=== PATIENT | male | born 1985 | race Two or more races ===

== ENCOUNTER 2018-11-29 23:20 | Observation (INO) | payer SELFPAY ==
[~2018-11-29] VITALS: Ht 172.7 cm; Wt 63.5 kg
[2018-11-30] VITALS (9 sets, daily range): BP systolic 112–126; BP diastolic 70–82
--- NOTE | 2018-11-30 00:42 | PHYS DOC ---
Past Medical History Past Medical History: No Pertinent History Past Surgical History: Other Additional Past Surgical Histo: unknown abd surgury "not cancer" per pt. Alcohol Use: Occasionally Drug Use: None Adult General Chief Complaint Chief Complaint: RIB PAIN HPI HPI Patient is a 33 year old Male who presents with one week ago patient was working under a truck when the dixie slipped and the truck tire fell down onto the patient patient states that he tried to get out from underneath it and a abrasion occurred to his right scapula. Patient states that he is slightly short of breath and having pain to the right scapula area. Patient rates pain a 6 out of 10. Ambulatory with a steady gait. Review of Systems Review of Systems Constitutional: Denies fever or chills [] Eyes: Denies change in visual acuity, redness, or eye pain [] HENT: Denies nasal congestion or sore throat [] Respiratory: Denies cough or shortness of breath [] Cardiovascular: No additional information not addressed in HPI [] GI: Denies abdominal pain, nausea, vomiting, bloody stools or diarrhea [] : Denies dysuria or hematuria [] Musculoskeletal: Right scapula back pain or joint pain [] Integument: Abrasion to right scapula. Denies rash or skin lesions [] Neurologic: Denies headache, focal weakness or sensory changes [] Endocrine: Denies polyuria or polydipsia [] All other systems were reviewed and found to be within normal limits, except as documented in this note. Current Medications Current Medications Current Medications Medications (Trade) Dose Ordered Sig/Hiro Start Time Stop Time Status Last Admin Dose Admin Acetaminophen/ Hydrocodone Bitart (Lortab 5/325) 1 tab 1X ONCE 11/30/18 00:45 11/30/18 00:46 DC 11/30/18 00:54 1 TAB Allergies Allergies Allergies Coded Allergies Type Severity Reaction Last Updated Verified No Known Drug Allergies 11/30/18 No Physical Exam Physical Exam Constitutional: Well developed, well nourished, no acute distress, non-toxic appearance. [] HENT: Normocephalic, atraumatic, bilateral external ears normal, oropharynx moist, no oral exudates, nose normal. [] Eyes: PERRLA, EOMI, conjunctiva normal, no discharge. [] Neck: Normal range of motion, no tenderness, supple, no stridor. [] Cardiovascular:Heart rate regular rhythm, no murmur [] Lungs & Thorax: Bilateral breath sounds clear to auscultation [] Abdomen: Bowel sounds normal, soft, no tenderness, no masses, no pulsatile masses. [] Skin: Right scapula abrasion. Warm, dry, no erythema, no rash. [] Back: No tenderness, no CVA tenderness. [] Extremities: Right scapula tenderness, no cyanosis, no clubbing, ROM intact, no edema. [] Neurologic: Alert and oriented X 3, normal motor function, normal sensory function, no focal deficits noted. [] Psychologic: Affect normal, judgement normal, mood normal. [] Current Patient Data Vital Signs Vital Signs Date Time Temp Pulse Resp B/P (MAP) Pulse Ox O2 Delivery O2 Flow Rate FiO2 11/30/18 00:54 98 Room Air 11/29/18 23:41 98.0 98 16 147/97 (114) 98.0 EKG EKG [] Radiology/Procedures Radiology/Procedures [] Impressions: [facility] [address] [place] [address] IMAGING REPORT Signed PATIENT: ALBERTO BRINK AACCOUNT: [id number] : 1985 LOCATION: ER AGE: 33 SEX: M EXAM STATUS: REG ER ORD. PHYSICIAN: JOSE JOLLEY APRN REASON: CAR TIRE FELL ON PATIENT PROCEDURE: CLAVICLE RIGHT Two-view right clavicle and two-view right scapula dated 11/30/2018. No comparison available. Clinical data indication: Car tire fell on patient. Pain. FINDINGS: Right scapula show normal bony alignment. No displaced fracture. Proximal humerus is intact. Mild hypertrophic change at the AC joint. 2 views of right clavicle show normal bony alignment. No displaced fracture. No significant subluxation of the AC joint. IMPRESSION: No acute radiographic abnormality. Electronically signed by: John Meade MD (11/30/2018 1:05 AM) [facility] DICTATED and SIGNED BY: JOHN MEADE MD DATE: 11/30/18 0105 [facility] [address] [place] [address] IMAGING REPORT Signed PATIENT: ALBERTO BRINK AACCOUNT: [id number] : 1985 LOCATION: ER AGE: 33 SEX: M EXAM STATUS: REG ER ORD. PHYSICIAN: JOSE JOLLEY APRN REASON: CAR TIRE FELL ON PATIENT PROCEDURE: RIBS RIGHT AND PA CHEST Single view chest and right-sided rib study dated 11/30/2018. No comparison available. Clinical data indication: Pain after injury. FINDINGS: Upright view of the chest shows normal heart and mediastinal contours. There is a small apical pneumothorax on the right. Pleural edge measures approximately 3.1 cm from the apical chest wall. Lungs are otherwise clear. No consolidation or pleural effusion. No pneumothorax. Dedicated views of right-sided ribs show a minimally displaced fracture of the posterior third right rib with slight cortical irregularity of the posterior fourth right rib. Osseous structures are otherwise intact. IMPRESSION: 1. Small right apical pneumothorax. 2. Minimally displaced fracture of the third and possibly fourth posterior right ribs. Results discussed with ER physician at approximately 1:09 AM on the day of the exam. Electronically signed by: John Meade MD (11/30/2018 1:10 AM) [facility] DICTATED and SIGNED BY: JOHN MEADE MD DATE: 11/30/180 Course & Med Decision Making Course & Med Decision Making Patient is a 33 year old Male who presents with one week ago patient was working under a truck when the dixie slipped and the truck tire fell down onto the patient patient states that he tried to get out from underneath it and a abrasion occurred to his right scapula. Patient states that he is slightly short of breath and having pain to the right scapula area. Patient rates pain a 6 out of 10. Ambulatory with a steady gait. Vital signs within normal limits. Lungs are clear to auscultation all lobes. No deformity seen to scapula but there is tenderness over the right scapula. Patient does have something to be a healing abrasion to the right scapula without signs of infection. Patient has full range of motion of the right upper extremity at all joints. Patient states mostly with movement he has pain. Speaks in full clear sentences. Skin pink warm and dry. No extremity swelling. Refill less than 3 seconds. No pain over chest or ribs with palpation or crepitus felt. No pain over right clavicle although it does stick out further than the left clavicle. Patient has no bruising or swelling. Scapula and Clavicle xray shows no acute findings. Right ribs and chest shows 3rd and possibly 4th rib fracture with small pneumothorax. Radiologist called to give me these results. I have spoken to Dr Jaimes and she states that since the patient is stable and it has been going on for a week that a chest tube is not indicated at this time but the patient is to be admitted. Chest with ribs xrays IMPRESSION: 1. Small right apical pneumothorax. 2. Minimally displaced fracture of the third and possibly fourth posterior right ribs. Dragon Disclaimer Dragon Disclaimer This electronic medical record was generated, in whole or in part, using a voice recognition dictation system. Departure Departure Impression: Primary Impression: Rib fractures Additional Impression: Pneumothorax on right Disposition: 09 ADMITTED INPATIENT Admitting Physician: HIMS Condition: STABLE Referrals: NO PCP (PCP) Problem Qualifiers Primary Impression: Rib fractures Encounter type: initial encounter Rib fracture type: multiple ribs Fracture type: closed Laterality: right Qualified Codes: S22.41XA - Multiple fractures of ribs, right side, initial encounter for closed fracture JOSE JOLLEY SENIOR PRINCIPAL Nov 30, 2018 00:41
[2018-11-30] MEDS ORDERED: HYDROcodone/APAP 5/325MG 1 TAB TABLET PO ONE (00:45)
--- NOTE | 2018-11-30 01:08 | RAD ---
Two-view right clavicle and two-view right scapula dated 11/30/2018. No comparison available. Clinical data indication: Car tire fell on patient. Pain. FINDINGS: Right scapula show normal bony alignment. No displaced fracture. Proximal humerus is intact. Mild hypertrophic change at the AC joint. 2 views of right clavicle show normal bony alignment. No displaced fracture. No significant subluxation of the AC joint. IMPRESSION: No acute radiographic abnormality. Electronically signed by: John Meade MD (11/30/2018 1:05 AM) [facility]
--- NOTE | 2018-11-30 01:12 | RAD ---
Single view chest and right-sided rib study dated 11/30/2018. No comparison available. Clinical data indication: Pain after injury. FINDINGS: Upright view of the chest shows normal heart and mediastinal contours. There is a small apical pneumothorax on the right. Pleural edge measures approximately 3.1 cm from the apical chest wall. Lungs are otherwise clear. No consolidation or pleural effusion. No pneumothorax. Dedicated views of right-sided ribs show a minimally displaced fracture of the posterior third right rib with slight cortical irregularity of the posterior fourth right rib. Osseous structures are otherwise intact. IMPRESSION: 1. Small right apical pneumothorax. 2. Minimally displaced fracture of the third and possibly fourth posterior right ribs. Results discussed with ER physician at approximately 1:09 AM on the day of the exam. Electronically signed by: John Meade MD (11/30/2018 1:10 AM) [facility]
[2018-11-30] MEDS ORDERED: ONDANSETRON PF 4 MG/2 ML VIAL. IV PRN (01:30)
[2018-11-30] MEDS ORDERED: ACETAMINOPHEN 325 MG TABLET. PO PRN (01:30)
[2018-11-30] MEDS ORDERED: fentaNYL PF VIAL 100 MCG/2 ML VIAL IV PRN (01:30)
[2018-11-30 01:46] LABS: BASO # 0.1 x10^3/uL (0.0-0.2); BASO % 1 % (0-3); EOS # 0.4 x10^3/uL (0.0-0.7); EOS % 5 % (0-3); HEMATOCRIT 41.1 % (39.0-53.0); HEMOGLOBIN 14.3 g/dL (13.0-17.5); LYMPH # 2.9 x10^3/uL (1.0-4.8); LYMPH % 33 % (24-48); MEAN CORPUSCULAR HEMOGLOBIN 34 pg (25-35); MEAN CORPUSCULAR HGB CONC 35 g/dL (31-37); MEAN CORPUSCULAR VOLUME 98 fL (79-100); MONO # 0.8 x10^3/uL (0.0-1.1); MONO % 10 % (0-9); NEUT # 4.5 x10^3/uL (1.8-7.7); NEUT % 52 % (31-73); PLATELET COUNT 475 x10^3/uL (140-400); RED BLOOD COUNT 4.19 x10^6/uL (4.30-5.70); RED CELL DISTRIBUTION WIDTH 13.1 % (11.5-14.5); WHITE BLOOD COUNT 8.8 x10^3/uL (4.0-11.0)
[2018-11-30 02:00] LABS: CREATININE 0.9 mg/dL (0.7-1.3); POTASSIUM 3.5 mmol/L (3.5-5.1)
[2018-11-30 02:05] LABS: ALBUMIN 3.8 g/dL (3.4-5.0); ALBUMIN/GLOBULIN RATIO 0.9 (1.0-1.7); TOTAL BILIRUBIN 0.3 mg/dL (0.2-1.0)
--- NOTE | 2018-11-30 10:50 | PDOC1 ---
History and Physical Date of Admission Date of Admission DATE: 11/30/18 TIME: 10:50 Identification/Chief Complaint Chief Complaint SEEN IN ER, CC ///AT WORK, 1 week ago under truck, dixie slipped and tire fell on patient. He has had some chest pressure and SOA since. Has not gotten any better. Xray findings with right small apical pneumothorax, rib fractures tried to get out from underneath truck and a abrasion occurred to his right scapula. is slightly short of breath and having pain to the right scapula area. Patient rates pain a 6 out of 10. Ambulatory with a steady gait.in er . Past Medical History Past Medical History Past Medical History Past Medical History: No Pertinent History Past Surgical History: Other Additional Past Surgical Histo: unknown abd surgury "not cancer" per pt. Alcohol Use: Occasionally Drug Use: None family hx htn Pulmonary: No pertinent hx GI: No pertinent hx Renal/: No pertinent hx Endocrine: No pertinent hx Dermatology: No pertinent hx Family History Family History: High Cholestrol, Hypertension Social History Smoke: No ALCOHOL: social Drugs: None Current Problem List Problem List Problems Medical Problems: (1) Pneumothorax on right Status: Acute (2) Rib fractures Status: Acute Current Medications Current Medications Current Medications Acetaminophen/ Hydrocodone Bitart (Lortab 5/325) 1 tab 1X ONCE PO Last administered on 11/30/18at 00:54; Start 11/30/18 at 00:45; Stop 11/30/18 at 00:46; Status DC Ondansetron HCl (Zofran) 4 mg PRN Q8HRS PRN IV NAUSEA/VOMITING; Start 11/30/18 at 01:30; Stop 12/01/18 at 01:29 Fentanyl Citrate (Fentanyl 2ml Vial) 50 mcg PRN Q1HR PRN IV PAIN; Start at 01:30; Stop 12/01/18 at 01:29 Acetaminophen (Tylenol) 650 mg PRN Q4HRS PRN PO FEVER; Start 11/30/18 at 01:30; Stop 12/01/18 at 01:29 Active Scripts Active Reported No Known Medications Prior To Admisstion (Info) Each 1 Each [facility] Allergies Allergies: Coded Allergies: No Known Drug Allergies (Unverified , 11/30/18) ROS Review of System Review of Systems Review of Systems Constitutional: Denies fever or chills [] Eyes: Denies change in visual acuity, redness, or eye pain [] HENT: Denies nasal congestion or sore throat [] Respiratory: Denies cough has mild shortness of breath [] Cardiovascular: No additional information not addressed in HPI [] GI: Denies abdominal pain, nausea, vomiting, bloody stools or diarrhea [] : Denies dysuria or hematuria [] Musculoskeletal: Right scapula back pain or joint pain [] Integument: Abrasion to right scapula. Denies rash or skin lesions [] Neurologic: Denies headache, focal weakness or sensory changes [] Endocrine: Denies polyuria or polydipsia [] 14 pt systems were reviewed and found to be within normal limits, except as documented in this note. Respiratory: YES: Pleuritic Pain Cardiovascular: yes Chest Pain Gastrointestinal: No Nausea, No Vomiting, No Abdominal Pain, No Diarrhea, No Constipation, No Melena, No Hematochezia, No Other Physical Exam Physical Exam Physical Exam Physical Exam Constitutional: Well developed, well nourished, no acute distress, non-toxic appearance. [] HENT: Normocephalic, atraumatic, bilateral external ears normal, oropharynx moist, no oral exudates, nose normal. [] Eyes: PERRLA, EOMI, conjunctiva normal, no discharge. [] Neck: Normal range of motion, no tenderness, supple, no stridor. [] Cardiovascular:Heart rate regular rhythm, no murmur [] Lungs & Thorax: Bilateral breath sounds clear to auscultation [] Abdomen: Bowel sounds normal, soft, no tenderness, no masses, no pulsatile masses. [] Skin: Right scapula abrasion. Warm, dry, no erythema, no rash. [] Back: No tenderness, no CVA tenderness. [] Extremities: Right scapula tenderness, no cyanosis, no clubbing, ROM intact, no edema. [] Neurologic: Alert and oriented X 3, normal motor function, normal sensory function, no focal deficits noted. [] Psychologic: Affect normal, judgement normal, mood normal. [] General: Alert, Oriented X3, Cooperative, No acute distress HEENT: Atraumatic, EOMI Lungs: Clear to auscultation Heart: S1S2, RRR, no thrills Breasts: Normal Abdomen: Normal bowel sounds, Soft PELVIC: Examination not indicated Extremities: No cyanosis, No edema Neuro: Normal speech, Strength at 5/5 X4 ext, Cranial nerves 3-12 NL Psych/Mental Status: Mental status NL, Mood NL Vitals Vitals Vital Signs Date Time Temp Pulse Resp B/P (MAP) Pulse Ox O2 Delivery O2 Flow Rate FiO2 11/30/18 10:24 80 16 117/76 (90) 98 Room Air 11/29/18 23:41 98.0 98.0 Labs Labs Laboratory Tests Test 11/30/18 01:38 White Blood Count 8.8 x10^3/uL (4.0-11.0) Red Blood Count 4.19 x10^6/uL (4.30-5.70) Hemoglobin 14.3 g/dL (13.0-17.5) Hematocrit 41.1 % (39.0-53.0) Mean Corpuscular Volume 98 fL (79-100) Mean Corpuscular Hemoglobin 34 pg (25-35) Mean Corpuscular Hemoglobin Concent 35 g/dL (31-37) Red Cell Distribution Width 13.1 % (11.5-14.5) Platelet Count 475 x10^3/uL (140-400) Neutrophils (%) (Auto) 52 % (31-73) Lymphocytes (%) (Auto) 33 % (24-48) Monocytes (%) (Auto) 10 % (0-9) Eosinophils (%) (Auto) 5 % (0-3) Basophils (%) (Auto) 1 % (0-3) Neutrophils # (Auto) 4.5 x10^3/uL (1.8-7.7) Lymphocytes # (Auto) 2.9 x10^3/uL (1.0-4.8) Monocytes # (Auto) 0.8 x10^3/uL (0.0-1.1) Eosinophils # (Auto) 0.4 x10^3/uL (0.0-0.7) Basophils # (Auto) 0.1 x10^3/uL (0.0-0.2) Sodium Level 140 mmol/L (136-145) Potassium Level 3.5 mmol/L (3.5-5.1) Chloride Level 102 mmol/L (98-107) Carbon Dioxide Level 26 mmol/L (21-32) Anion Gap 12 (6-14) Blood Urea Nitrogen 16 mg/dL (8-26) Creatinine 0.9 mg/dL (0.7-1.3) Estimated GFR (Cockcroft-Gault) 96.0 BUN/Creatinine Ratio 18 (6-20) Glucose Level 114 mg/dL (70-99) Calcium Level 9.0 mg/dL (8.5-10.1) Total Bilirubin 0.3 mg/dL (0.2-1.0) Aspartate Amino Transf (AST/SGOT) 22 U/L (15-37) Alanine Aminotransferase (ALT/SGPT) 44 U/L (16-63) Alkaline Phosphatase 106 U/L (46-116) Total Protein 8.0 g/dL (6.4-8.2) Albumin 3.8 g/dL (3.4-5.0) Albumin/Globulin Ratio 0.9 (1.0-1.7) Laboratory Tests Test 11/30/18 01:38 White Blood Count 8.8 x10^3/uL (4.0-11.0) Red Blood Count 4.19 x10^6/uL (4.30-5.70) Hemoglobin 14.3 g/dL (13.0-17.5) Hematocrit 41.1 % (39.0-53.0) Mean Corpuscular Volume 98 fL (79-100) Mean Corpuscular Hemoglobin 34 pg (25-35) Mean Corpuscular Hemoglobin Concent 35 g/dL (31-37) Red Cell Distribution Width 13.1 % (11.5-14.5) Platelet Count 475 x10^3/uL (140-400) Neutrophils (%) (Auto) 52 % (31-73) Lymphocytes (%) (Auto) 33 % (24-48) Monocytes (%) (Auto) 10 % (0-9) Eosinophils (%) (Auto) 5 % (0-3) Basophils (%) (Auto) 1 % (0-3) Neutrophils # (Auto) 4.5 x10^3/uL (1.8-7.7) Lymphocytes # (Auto) 2.9 x10^3/uL (1.0-4.8) Monocytes # (Auto) 0.8 x10^3/uL (0.0-1.1) Eosinophils # (Auto) 0.4 x10^3/uL (0.0-0.7) Basophils # (Auto) 0.1 x10^3/uL (0.0-0.2) Sodium Level 140 mmol/L (136-145) Potassium Level 3.5 mmol/L (3.5-5.1) Chloride Level 102 mmol/L (98-107) Carbon Dioxide Level 26 mmol/L (21-32) Anion Gap 12 (6-14) Blood Urea Nitrogen 16 mg/dL (8-26) Creatinine 0.9 mg/dL (0.7-1.3) Estimated GFR (Cockcroft-Gault) 96.0 BUN/Creatinine Ratio 18 (6-20) Glucose Level 114 mg/dL (70-99) Calcium Level 9.0 mg/dL (8.5-10.1) Total Bilirubin 0.3 mg/dL (0.2-1.0) Aspartate Amino Transf (AST/SGOT) 22 U/L (15-37) Alanine Aminotransferase (ALT/SGPT) 44 U/L (16-63) Alkaline Phosphatase 106 U/L (46-116) Total Protein 8.0 g/dL (6.4-8.2) Albumin 3.8 g/dL (3.4-5.0) Albumin/Globulin Ratio 0.9 (1.0-1.7) Images Images SEX: M EXAM STATUS: REG ER ORD. PHYSICIAN: JOSE JOLLEY APRN REASON: CAR TIRE FELL ON PATIENT PROCEDURE: CLAVICLE RIGHT Two-view right clavicle and two-view right scapula dated 11/30/2018. No comparison available. Clinical data indication: Car tire fell on patient. Pain. FINDINGS: Right scapula show normal bony alignment. No displaced fracture. Proximal humerus is intact. Mild hypertrophic change at the AC joint. 2 views of right clavicle show normal bony alignment. No displaced fracture. No significant subluxation of the AC joint. IMPRESSION: No acute radiographic abnormality. Single view chest and right-sided rib study dated 11/30/2018. No comparison available. Clinical data indication: Pain after injury. FINDINGS: Upright view of the chest shows normal heart and mediastinal contours. There is a small apical pneumothorax on the right. Pleural edge measures approximately 3.1 cm from the apical chest wall. Lungs are otherwise clear. No consolidation or pleural effusion. No pneumothorax. Dedicated views of right-sided ribs show a minimally displaced fracture of the posterior third right rib with slight cortical irregularity of the posterior fourth right rib. Osseous structures are otherwise intact. IMPRESSION: 1. Small right apical pneumothorax. 2. Minimally displaced fracture of the third and possibly fourth posterior right ribs. VTE Prophylaxis Ordered VTE Prophylaxis Devices: Yes VTE Pharmacological Prophylaxi: Yes Assessment/Plan Assessment/Plan IMPRESSION: 1. Small right apical pneumothorax. There is a small apical pneumothorax on the right. Pleural edge measures approximately 3.1 cm from the apical chest wall. 2. Minimally displaced fracture of the third and possibly fourth posterior right ribs. PLAN ADMIT TRAUMA CONSULT Pulm consult pain control serial cxr tele o2 support prn 59 min pt exam, chart review, > 50% of time spent with exam, chart review, pt care coordination FORREST ELKINS MD Nov 30, 2018 10:50
--- NOTE | 2018-11-30 11:42 | PDOC2 ---
YANELIS COLLIER PERSONNEL WORKER 11/30/18 1142: CONSULT Date of Consult Date of Consult DATE: 11/30/18 TIME: 11:41 Reason for Consult Reason for Consult: Trauma Referring Physician Referring Physician: ER Identification/Chief Complaint Chief Complaint chest pressure Source Source: Chart review, Patient History of Present Illness Reason for Visit: 1 week ago under truck, dixie slipped and tire fell on patient. He has had some chest pressure and SOA since. Has not gotten any better. No nausea or vomiting. No diarrhea. Xray findings with right small apical pneumothorax, rib fractures Past Medical History Past Medical History no pertinent hx Past Surgical History Past Surgical History: No pertinent history Family History Family History: Family History Unknown Social History <1 pack per day ALCOHOL: occassional Drugs: None Lives: with Family Current Problem List Problem List Problems Medical Problems: (1) Pneumothorax on right Status: Acute (2) Rib fractures Status: Acute Current Medications Current Medications Current Medications Acetaminophen/ Hydrocodone Bitart (Lortab 5/325) 1 tab 1X ONCE PO Last administered on 11/30/18at 00:54; Start 11/30/18 at 00:45; Stop 11/30/18 at 00:46; Status DC Ondansetron HCl (Zofran) 4 mg PRN Q8HRS PRN IV NAUSEA/VOMITING; Start 11/30/18 at 01:30; Stop 12/01/18 at 01:29 Fentanyl Citrate (Fentanyl 2ml Vial) 50 mcg PRN Q1HR PRN IV PAIN; Start 11/30/18 at 01:30; Stop 12/01/18 at 01:29 Acetaminophen (Tylenol) 650 mg PRN Q4HRS PRN PO FEVER; Start 11/30/18 at 01:30; Stop 12/01/18 at 01:29 Active Scripts Active Reported No Known Medications Prior To Admisstion (Info) Each 1 Each Allergies Allergies: Coded Allergies: No Known Drug Allergies (Unverified , 11/30/18) ROS General: No: Chills, Other (fevers ) PSYCHOLOGICAL ROS: No: Anxiety, Depression Eyes: No Blurry vision, No Double vision HEENT: No: Heacaches, Sore Throat Hematological and Lymphatic: No: Bleeding Problems, Blood Clots Respiratory: YES: Other (see hpi) Cardiovascular: yes Chest Pain; No Palpitations Gastrointestinal: No Nausea, No Vomiting, No Abdominal Pain Genitourinary: No Dysuria, No Hematuria Musculoskeletal: No Joint Pain, No Muscle Pain Neurological: No Confusion, No Impaired Coord/balance Skin: No Pruritus, No Rash Physical Exam General: Alert, Oriented X3, Cooperative, No acute distress HEENT: PERRLA, Mucous membr. moist/pink Lungs: Clear to auscultation, Normal air movement Heart: Regular rate, Normal S1, Normal S2, No murmurs Abdomen: Soft, No tenderness Extremities: No clubbing, No cyanosis Skin: No rashes Neuro: Normal gait, Normal speech Psych/Mental Status: Mental status NL, Mood NL MUSCULOSKELETAL: No deformity, No muscular tenderness noted Vitals VITALS Vital Signs Date Time Temp Pulse Resp B/P (MAP) Pulse Ox O2 Delivery O2 Flow Rate FiO2 11/30/18 11:16 57 29 121/72 (88) 97 Room Air 11/29/18 23:41 98.0 98.0 Labs Labs Laboratory Tests Test 11/30/18 01:38 White Blood Count 8.8 x10^3/uL (4.0-11.0) Red Blood Count 4.19 x10^6/uL (4.30-5.70) Hemoglobin 14.3 g/dL (13.0-17.5) Hematocrit 41.1 % (39.0-53.0) Mean Corpuscular Volume 98 fL (79-100) Mean Corpuscular Hemoglobin 34 pg (25-35) Mean Corpuscular Hemoglobin Concent 35 g/dL (31-37) Red Cell Distribution Width 13.1 % (11.5-14.5) Platelet Count 475 x10^3/uL (140-400) Neutrophils (%) (Auto) 52 % (31-73) Lymphocytes (%) (Auto) 33 % (24-48) Monocytes (%) (Auto) 10 % (0-9) Eosinophils (%) (Auto) 5 % (0-3) Basophils (%) (Auto) 1 % (0-3) Neutrophils # (Auto) 4.5 x10^3/uL (1.8-7.7) Lymphocytes # (Auto) 2.9 x10^3/uL (1.0-4.8) Monocytes # (Auto) 0.8 x10^3/uL (0.0-1.1) Eosinophils # (Auto) 0.4 x10^3/uL (0.0-0.7) Basophils # (Auto) 0.1 x10^3/uL (0.0-0.2) Sodium Level 140 mmol/L (136-145) Potassium Level 3.5 mmol/L (3.5-5.1) Chloride Level 102 mmol/L (98-107) Carbon Dioxide Level 26 mmol/L (21-32) Anion Gap 12 (6-14) Blood Urea Nitrogen 16 mg/dL (8-26) Creatinine 0.9 mg/dL (0.7-1.3) Estimated GFR (Cockcroft-Gault) 96.0 BUN/Creatinine Ratio 18 (6-20) Glucose Level 114 mg/dL (70-99) Calcium Level 9.0 mg/dL (8.5-10.1) Total Bilirubin 0.3 mg/dL (0.2-1.0) Aspartate Amino Transf (AST/SGOT) 22 U/L (15-37) Alanine Aminotransferase (ALT/SGPT) 44 U/L (16-63) Alkaline Phosphatase 106 U/L (46-116) Total Protein 8.0 g/dL (6.4-8.2) Albumin 3.8 g/dL (3.4-5.0) Albumin/Globulin Ratio 0.9 (1.0-1.7) Laboratory Tests Test 11/30/18 01:38 White Blood Count 8.8 x10^3/uL (4.0-11.0) Red Blood Count 4.19 x10^6/uL (4.30-5.70) Hemoglobin 14.3 g/dL (13.0-17.5) Hematocrit 41.1 % (39.0-53.0) Mean Corpuscular Volume 98 fL (79-100) Mean Corpuscular Hemoglobin 34 pg (25-35) Mean Corpuscular Hemoglobin Concent 35 g/dL (31-37) Red Cell Distribution Width 13.1 % (11.5-14.5) Platelet Count 475 x10^3/uL (140-400) Neutrophils (%) (Auto) 52 % (31-73) Lymphocytes (%) (Auto) 33 % (24-48) Monocytes (%) (Auto) 10 % (0-9) Eosinophils (%) (Auto) 5 % (0-3) Basophils (%) (Auto) 1 % (0-3) Neutrophils # (Auto) 4.5 x10^3/uL (1.8-7.7) Lymphocytes # (Auto) 2.9 x10^3/uL (1.0-4.8) Monocytes # (Auto) 0.8 x10^3/uL (0.0-1.1) Eosinophils # (Auto) 0.4 x10^3/uL (0.0-0.7) Basophils # (Auto) 0.1 x10^3/uL (0.0-0.2) Sodium Level 140 mmol/L (136-145) Potassium Level 3.5 mmol/L (3.5-5.1) Chloride Level 102 mmol/L (98-107) Carbon Dioxide Level 26 mmol/L (21-32) Anion Gap 12 (6-14) Blood Urea Nitrogen 16 mg/dL (8-26) Creatinine 0.9 mg/dL (0.7-1.3) Estimated GFR (Cockcroft-Gault) 96.0 BUN/Creatinine Ratio 18 (6-20) Glucose Level 114 mg/dL (70-99) Calcium Level 9.0 mg/dL (8.5-10.1) Total Bilirubin 0.3 mg/dL (0.2-1.0) Aspartate Amino Transf (AST/SGOT) 22 U/L (15-37) Alanine Aminotransferase (ALT/SGPT) 44 U/L (16-63) Alkaline Phosphatase 106 U/L (46-116) Total Protein 8.0 g/dL (6.4-8.2) Albumin 3.8 g/dL (3.4-5.0) Albumin/Globulin Ratio 0.9 (1.0-1.7) Assessment/Plan Assessment/Plan trauma, crush injury to chest 1 week ago small apical pneumo, rib fxs Sats upper 90s on RA will ask pulm to eval pulmonary toiletry, pain control for rib fx recommend smoking cessation MARIOLA SIERRA MD 11/30/18 4359: CONSULT Assessment/Plan Assessment/Plan Pt seen and examined. Agree with Ms. Collier's note Pt with right upper back pain, topical treatment CXR essentially unchanged. D/w pt 6 week healing time. Thanks for consult! YANELIS COLLIER APRN Nov 30, 2018 11:42 MARIOLA SIERRA MD Nov 30, 2018 18:44
[2018-11-30] MEDS: ENOXAPARIN 40 MG/0.4 ML SYRINGE. SQ SCH (14:25)
[2018-11-30] MEDS: HYDROcodone/APAP 7.5/325MG 1 TAB TABLET PO PRN (14:26)
--- NOTE | 2018-11-30 15:57 | PDOC ---
PULMONARY PROGRESS NOTES Vitals Vital Signs Date Time Temp Pulse Resp B/P (MAP) Pulse Ox O2 Delivery O2 Flow Rate FiO2 11/30/18 14:38 Room Air 11/30/18 14:26 98 11/30/18 12:21 98.2 52 11 122/78 (93) 98.2 Labs Laboratory Tests Test 11/30/18 01:38 White Blood Count 8.8 x10^3/uL (4.0-11.0) Red Blood Count 4.19 x10^6/uL (4.30-5.70) Hemoglobin 14.3 g/dL (13.0-17.5) Hematocrit 41.1 % (39.0-53.0) Mean Corpuscular Volume 98 fL (79-100) Mean Corpuscular Hemoglobin 34 pg (25-35) Mean Corpuscular Hemoglobin Concent 35 g/dL (31-37) Red Cell Distribution Width 13.1 % (11.5-14.5) Platelet Count 475 x10^3/uL (140-400) Neutrophils (%) (Auto) 52 % (31-73) Lymphocytes (%) (Auto) 33 % (24-48) Monocytes (%) (Auto) 10 % (0-9) Eosinophils (%) (Auto) 5 % (0-3) Basophils (%) (Auto) 1 % (0-3) Neutrophils # (Auto) 4.5 x10^3/uL (1.8-7.7) Lymphocytes # (Auto) 2.9 x10^3/uL (1.0-4.8) Monocytes # (Auto) 0.8 x10^3/uL (0.0-1.1) Eosinophils # (Auto) 0.4 x10^3/uL (0.0-0.7) Basophils # (Auto) 0.1 x10^3/uL (0.0-0.2) Sodium Level 140 mmol/L (136-145) Potassium Level 3.5 mmol/L (3.5-5.1) Chloride Level 102 mmol/L (98-107) Carbon Dioxide Level 26 mmol/L (21-32) Anion Gap 12 (6-14) Blood Urea Nitrogen 16 mg/dL (8-26) Creatinine 0.9 mg/dL (0.7-1.3) Estimated GFR (Cockcroft-Gault) 96.0 BUN/Creatinine Ratio 18 (6-20) Glucose Level 114 mg/dL (70-99) Calcium Level 9.0 mg/dL (8.5-10.1) Total Bilirubin 0.3 mg/dL (0.2-1.0) Aspartate Amino Transf (AST/SGOT) 22 U/L (15-37) Alanine Aminotransferase (ALT/SGPT) 44 U/L (16-63) Alkaline Phosphatase 106 U/L (46-116) Total Protein 8.0 g/dL (6.4-8.2) Albumin 3.8 g/dL (3.4-5.0) Albumin/Globulin Ratio 0.9 (1.0-1.7) Laboratory Tests Test 11/30/18 01:38 White Blood Count 8.8 x10^3/uL (4.0-11.0) Red Blood Count 4.19 x10^6/uL (4.30-5.70) Hemoglobin 14.3 g/dL (13.0-17.5) Hematocrit 41.1 % (39.0-53.0) Mean Corpuscular Volume 98 fL (79-100) Mean Corpuscular Hemoglobin 34 pg (25-35) Mean Corpuscular Hemoglobin Concent 35 g/dL (31-37) Red Cell Distribution Width 13.1 % (11.5-14.5) Platelet Count 475 x10^3/uL (140-400) Neutrophils (%) (Auto) 52 % (31-73) Lymphocytes (%) (Auto) 33 % (24-48) Monocytes (%) (Auto) 10 % (0-9) Eosinophils (%) (Auto) 5 % (0-3) Basophils (%) (Auto) 1 % (0-3) Neutrophils # (Auto) 4.5 x10^3/uL (1.8-7.7) Lymphocytes # (Auto) 2.9 x10^3/uL (1.0-4.8) Monocytes # (Auto) 0.8 x10^3/uL (0.0-1.1) Eosinophils # (Auto) 0.4 x10^3/uL (0.0-0.7) Basophils # (Auto) 0.1 x10^3/uL (0.0-0.2) Sodium Level 140 mmol/L (136-145) Potassium Level 3.5 mmol/L (3.5-5.1) Chloride Level 102 mmol/L (98-107) Carbon Dioxide Level 26 mmol/L (21-32) Anion Gap 12 (6-14) Blood Urea Nitrogen 16 mg/dL (8-26) Creatinine 0.9 mg/dL (0.7-1.3) Estimated GFR (Cockcroft-Gault) 96.0 BUN/Creatinine Ratio 18 (6-20) Glucose Level 114 mg/dL (70-99) Calcium Level 9.0 mg/dL (8.5-10.1) Total Bilirubin 0.3 mg/dL (0.2-1.0) Aspartate Amino Transf (AST/SGOT) 22 U/L (15-37) Alanine Aminotransferase (ALT/SGPT) 44 U/L (16-63) Alkaline Phosphatase 106 U/L (46-116) Total Protein 8.0 g/dL (6.4-8.2) Albumin 3.8 g/dL (3.4-5.0) Albumin/Globulin Ratio 0.9 (1.0-1.7) Medications Active Scripts Medications Dose Route/Sig Max Daily Dose Days Date Category No Known Medications Prior To Admisstion (Info) Each 1 Each 11/30/18 Reported Impression . NOTE DICTATED WILL REPEAT CXR MAY BE DC HOME AFTER CXR THANKS DAGOBERTO WATKINS MD Nov 30, 2018 15:57
--- NOTE | 2018-11-30 16:38 | RAD ---
PORTABLE CHEST 1V 3:40 PM Clinical indications: Pneumothorax. COMPARISON: Same day performed earlier at 12:38 AM. FINDINGS/ IMPRESSION: Again seen is a right apical pneumothorax which measures 29 mm from the right apical edge. It measured 32 mm previously. Therefore, it has not significantly changed in size. No acute lung infiltrate or pleural effusion is seen. Electronically signed by: Ishaan Juarez MD (11/30/2018 4:35 PM) [id number]
--- NOTE | 2018-11-30 22:34 | CONS ---
DATE OF CONSULTATION: 11/30/2018 ATTENDING PHYSICIAN: Dr. Guerrero. REASON FOR CONSULTATION: The patient seen in pulmonary consultation at the request of Dr. Guerrero for pneumothorax. HISTORY OF PRESENT ILLNESS: The patient is a 33-year-old male who was working on the truck last week. The dixie slipped and tire feel on the patient. He presented with increasing shortness of breath and chest pressure. Chest x-ray was obtained. He has a small right-sided pneumothorax. There are also some fractured ribs. I was asked to see him in consultation. The patient has no past medical history. He denies any hemoptysis. No fever, chills or night sweats. PAST MEDICAL HISTORY: None. PAST SURGICAL HISTORY: None. SOCIAL HISTORY: He occasionally uses alcohol. Nonsmoker. ALLERGIES: No known drug allergies. REVIEW OF SYSTEMS: As indicated above, otherwise, a 10-point system was reviewed and negative. PHYSICAL EXAMINATION: GENERAL: The patient was in no respiratory distress. VITAL SIGNS: Stable. O2 saturation was greater than 92% on room air. HEENT: Eyes, the sclerae were nonicteric. NECK: Jugular venous distention was not elevated. No lymphadenopathy. CHEST: Full expansion. LUNGS: Adequate airway flow with no wheezes. CARDIOVASCULAR: Regular rate and rhythm with S1, S2, no S3. ABDOMEN: Soft, nontender, nondistended. EXTREMITIES: No clubbing, cyanosis or edema. LABORATORY DATA: Reviewed. IMAGING: Chest x-ray was reviewed. IMPRESSION: 1. Traumatic pneumothorax. 2. Right fractured ribs. PLAN: Pneumothorax is small on chest x-ray, the patient is asymptomatic, this happened approximately a week ago. I will repeat chest x-ray. If there has been no, I recommend discharging home with pain management. The pneumothorax will eventually resolve. No need for chest tube at this time. I do appreciate the privilege in sharing in the patient's care. DAGOBERTO WATKINS MD DR: MILADIS/lizette JOB#: [id number] / [id number]
[2018-12-01 03:05] VITALS: BP 143/95
[2018-12-01 07:20] VITALS: BP 126/79
--- NOTE | 2018-12-01 08:41 | PDOC ---
PULMONARY PROGRESS NOTES Vitals Vital Signs Date Time Temp Pulse Resp B/P (MAP) Pulse Ox O2 Delivery O2 Flow Rate FiO2 12/01/18 07:20 98.2 58 16 126/79 (95) 98 Room Air 98.2 11/30/18 23:49 2.0 Labs Laboratory Tests Test 11/30/18 01:38 White Blood Count 8.8 x10^3/uL (4.0-11.0) Red Blood Count 4.19 x10^6/uL (4.30-5.70) Hemoglobin 14.3 g/dL (13.0-17.5) Hematocrit 41.1 % (39.0-53.0) Mean Corpuscular Volume 98 fL (79-100) Mean Corpuscular Hemoglobin 34 pg (25-35) Mean Corpuscular Hemoglobin Concent 35 g/dL (31-37) Red Cell Distribution Width 13.1 % (11.5-14.5) Platelet Count 475 x10^3/uL (140-400) Neutrophils (%) (Auto) 52 % (31-73) Lymphocytes (%) (Auto) 33 % (24-48) Monocytes (%) (Auto) 10 % (0-9) Eosinophils (%) (Auto) 5 % (0-3) Basophils (%) (Auto) 1 % (0-3) Neutrophils # (Auto) 4.5 x10^3/uL (1.8-7.7) Lymphocytes # (Auto) 2.9 x10^3/uL (1.0-4.8) Monocytes # (Auto) 0.8 x10^3/uL (0.0-1.1) Eosinophils # (Auto) 0.4 x10^3/uL (0.0-0.7) Basophils # (Auto) 0.1 x10^3/uL (0.0-0.2) Sodium Level 140 mmol/L (136-145) Potassium Level 3.5 mmol/L (3.5-5.1) Chloride Level 102 mmol/L (98-107) Carbon Dioxide Level 26 mmol/L (21-32) Anion Gap 12 (6-14) Blood Urea Nitrogen 16 mg/dL (8-26) Creatinine 0.9 mg/dL (0.7-1.3) Estimated GFR (Cockcroft-Gault) 96.0 BUN/Creatinine Ratio 18 (6-20) Glucose Level 114 mg/dL (70-99) Calcium Level 9.0 mg/dL (8.5-10.1) Total Bilirubin 0.3 mg/dL (0.2-1.0) Aspartate Amino Transf (AST/SGOT) 22 U/L (15-37) Alanine Aminotransferase (ALT/SGPT) 44 U/L (16-63) Alkaline Phosphatase 106 U/L (46-116) Creatine Kinase 121 U/L (39-308) Total Protein 8.0 g/dL (6.4-8.2) Albumin 3.8 g/dL (3.4-5.0) Albumin/Globulin Ratio 0.9 (1.0-1.7) Medications Active Scripts Medications Dose Route/Sig Max Daily Dose Days Date Category No Known Medications Prior To Admisstion (Info) Each 1 Each 11/30/18 Reported Impression . NOTE DICTATED WILL REPEAT CXR MAY BE DC HOME AFTER CXR THANKS DAGOBERTO WATKINS MD Dec 01, 2018 08:41
[2018-12-01] MEDS: HYDROcodone/APAP 7.5/325MG 1 TAB TABLET PO PRN (09:36)
--- NOTE | 2018-12-01 09:43 | PDOC ---
PROGRESS NOTES History of Present Illness History of Present Illness VTE Prophylaxis Ordered VTE Prophylaxis Devices: Yes VTE Pharmacological Prophylaxi: Yes Assessment/Plan Assessment/Plan IMPRESSION: 1. Small right apical pneumothorax. There is a small apical pneumothorax on the right. Pleural edge measures approximately 3.1 cm from the apical chest wall. 2. Minimally displaced fracture of the third and possibly fourth posterior right ribs. 3. mild resp failure on o2 nc PLAN ADMIT TRAUMA CONSULT Pulm consult pain control serial cxr tele o2 support prn 37 min pt exam, chart review, > 50% of time spent with exam, chart review, pt care coordination Vitals Vitals Vital Signs Date Time Temp Pulse Resp B/P (MAP) Pulse Ox O2 Delivery O2 Flow Rate FiO2 12/01/18 07:20 98.2 58 16 126/79 (95) 98 Room Air 98.2 11/30/18 23:49 2.0 Physical Exam General: Alert, Oriented X3, Cooperative, No acute distress Heart: Regular rate, Normal S1, Normal S2, No murmurs Lungs: Clear Abdomen: Normal bowel sounds, Soft, No tenderness Extremities: No cyanosis, No edema, Normal pulses Skin: No rashes, No breakdown Assessment and Plan Assessmemt and Plan Problems Medical Problems: (1) Pneumothorax on right Status: Acute (2) Rib fractures Status: Acute Comment Review of Relevant I have reviewed the following items martin (where applicable) has been applied. Labs Laboratory Tests Test 11/30/18 01:38 White Blood Count 8.8 x10^3/uL (4.0-11.0) Red Blood Count 4.19 x10^6/uL (4.30-5.70) Hemoglobin 14.3 g/dL (13.0-17.5) Hematocrit 41.1 % (39.0-53.0) Mean Corpuscular Volume 98 fL (79-100) Mean Corpuscular Hemoglobin 34 pg (25-35) Mean Corpuscular Hemoglobin Concent 35 g/dL (31-37) Red Cell Distribution Width 13.1 % (11.5-14.5) Platelet Count 475 x10^3/uL (140-400) Neutrophils (%) (Auto) 52 % (31-73) Lymphocytes (%) (Auto) 33 % (24-48) Monocytes (%) (Auto) 10 % (0-9) Eosinophils (%) (Auto) 5 % (0-3) Basophils (%) (Auto) 1 % (0-3) Neutrophils # (Auto) 4.5 x10^3/uL (1.8-7.7) Lymphocytes # (Auto) 2.9 x10^3/uL (1.0-4.8) Monocytes # (Auto) 0.8 x10^3/uL (0.0-1.1) Eosinophils # (Auto) 0.4 x10^3/uL (0.0-0.7) Basophils # (Auto) 0.1 x10^3/uL (0.0-0.2) Sodium Level 140 mmol/L (136-145) Potassium Level 3.5 mmol/L (3.5-5.1) Chloride Level 102 mmol/L (98-107) Carbon Dioxide Level 26 mmol/L (21-32) Anion Gap 12 (6-14) Blood Urea Nitrogen 16 mg/dL (8-26) Creatinine 0.9 mg/dL (0.7-1.3) Estimated GFR (Cockcroft-Gault) 96.0 BUN/Creatinine Ratio 18 (6-20) Glucose Level 114 mg/dL (70-99) Calcium Level 9.0 mg/dL (8.5-10.1) Total Bilirubin 0.3 mg/dL (0.2-1.0) Aspartate Amino Transf (AST/SGOT) 22 U/L (15-37) Alanine Aminotransferase (ALT/SGPT) 44 U/L (16-63) Alkaline Phosphatase 106 U/L (46-116) Creatine Kinase 121 U/L (39-308) Total Protein 8.0 g/dL (6.4-8.2) Albumin 3.8 g/dL (3.4-5.0) Albumin/Globulin Ratio 0.9 (1.0-1.7) Medications Current Medications Acetaminophen/ Hydrocodone Bitart (Lortab 5/325) 1 tab 1X ONCE PO Last administered on 11/30/18at 00:54; Start 11/30/18 at 00:45; Stop 11/30/18 at 00:46; Status DC Ondansetron HCl (Zofran) 4 mg PRN Q8HRS PRN IV NAUSEA/VOMITING; Start 11/30/18 at 01:30; Stop 12/01/18 at 01:29; Status DC Fentanyl Citrate (Fentanyl 2ml Vial) 50 mcg PRN Q1HR PRN IV PAIN; Start 11/30/18 at 01:30; Stop 12/01/18 at 01:29; Status DC Acetaminophen (Tylenol) 650 mg PRN Q4HRS PRN PO FEVER; Start 11/30/18 at 01:30; Stop 12/01/18 at 01:29; Status DC Acetaminophen/ Hydrocodone Bitart (Lortab 7.5/325) 1 tab PRN Q4HRS PRN PO PAIN Last administered on 12/01/18at 09:36; Start 11/30/18 at 13:15 Enoxaparin Sodium (Lovenox 40mg Syringe) 40 mg Q24H SQ Last administered on 11/30/18at 14:26; Start 11/30/18 at 14:00 Active Scripts Active Reported No Known Medications Prior To Admisstion (Info) Each 1 Each Vitals/I & O Vital Sign - Last 24 Hours 11/30/18 11/30/18 11/30/18 11/30/18 09:51 10:24 11:16 12:21 Temp 98.2 98.2 Pulse 60 80 57 52 Resp 15 16 29 11 B/P (MAP) 117/75 (89) 117/76 (90) 121/72 (88) 122/78 (93) Pulse Ox 98 97 98 O2 Delivery Room Air Room Air Room Air Room Air 11/30/18 11/30/18 11/30/18 11/30/18 13:35 14:26 14:38 15:05 Temp 97.8 97.7 97.8 97.7 Pulse 73 52 Resp 20 18 B/P (MAP) 116/82 (93) 115/71 (86) Pulse Ox 98 98 100 O2 Delivery Room Air Room Air Room Air Room Air 11/30/18 11/30/18 11/30/18 11/30/18 15:58 19:40 19:40 23:49 Temp 97.8 98.1 97.8 98.1 Pulse 64 69 Resp 18 B/P (MAP) 112/72 (85) 126/79 (95) Pulse Ox 98 99 98 O2 Delivery Room Air Room Air Room Air Nasal Cannula O2 Flow Rate 2.0 12/01/18 12/01/18 03:05 07:20 Temp 98.1 98.2 98.1 98.2 Pulse 64 58 Resp 18 16 B/P (MAP) 143/95 (111) 126/79 (95) Pulse Ox 95 98 O2 Delivery Room Air Room Air Intake and Output 11/30/18 11/30/18 12/01/18 14:59 22:59 06:59 Intake Total 0 ml 720 ml Balance 0 ml 720 ml FORREST ELKINS MD Dec 01, 2018 09:43
[2018-12-01 10:48] LABS: BASO # 0.1 x10^3/uL (0.0-0.2); BASO % 1 % (0-3); EOS # 0.3 x10^3/uL (0.0-0.7); EOS % 4 % (0-3); HEMATOCRIT 43.6 % (39.0-53.0); HEMOGLOBIN 15.1 g/dL (13.0-17.5); LYMPH # 1.9 x10^3/uL (1.0-4.8); LYMPH % 22 % (24-48); MEAN CORPUSCULAR HEMOGLOBIN 34 pg (25-35); MEAN CORPUSCULAR HGB CONC 35 g/dL (31-37); MEAN CORPUSCULAR VOLUME 98 fL (79-100); MONO # 0.5 x10^3/uL (0.0-1.1); MONO % 6 % (0-9); NEUT # 5.8 x10^3/uL (1.8-7.7); NEUT % 68 % (31-73); PLATELET COUNT 493 x10^3/uL (140-400); RED BLOOD COUNT 4.44 x10^6/uL (4.30-5.70); RED CELL DISTRIBUTION WIDTH 13.4 % (11.5-14.5); WHITE BLOOD COUNT 8.6 x10^3/uL (4.0-11.0)
[2018-12-01 10:54] LABS: CALCIUM 8.7 mg/dL (8.5-10.1); CREATININE 0.9 mg/dL (0.7-1.3); POTASSIUM 4.1 mmol/L (3.5-5.1)
[2018-12-01 11:05] VITALS: BP 111/71
--- NOTE | 2018-12-01 13:09 | PDOC3 ---
Discharge Summary Date of Admission: Nov 30, 2018 Date of Discharge: Dec 01, 2018 Follow-Up: 3-5 days Admitting Diagnosis comment: DISCHARGE DX Assessment/Plan IMPRESSION: 1. Small right apical pneumothorax. There is a small apical pneumothorax on the right. Pleural edge measures approximately 3.1 cm from the apical chest wall. 2. Minimally displaced fracture of the third and possibly fourth posterior right ribs. 3. mild resp failure on o2 nc PLAN ADMIT TRAUMA CONSULT Pulm consult pain control serial cxr tele o2 support prn SEE PCP NEXT WEEK 37 min pt exam, chart review D/C PLANNING, > 50% of time spent with exam, chart review, pt care coordination Vitals Vitals Vital Signs Date Time Temp Pulse Resp B/P (MAP) Pulse Ox O2 Delivery O2 Flow Rate FiO2 12/01/18 07:20 98.2 58 16 126/79 (95) 98 Room Air 98.2 11/30/18 23:49 2.0 Physical Exam General: Alert, Oriented X3, Cooperative, No acute distress Heart: Regular rate, Normal S1, Normal S2, No murmurs Lungs: Clear Abdomen: Normal bowel sounds, Soft, No tenderness Extremities: No cyanosis, No edema, Normal pulses Skin: No rashes, No breakdown FINAL DIAGNOSIS Problems Medical Problems: (1) Pneumothorax on right Status: Acute (2) Rib fractures Status: Acute Brief Hospital Course Mr. Alfonso is a 33 old [sex] who presented with [ PNEUMOTHORAX] CONDITION AT DISCHARGE: Improved Discharge Medications Current Medications Acetaminophen/ Hydrocodone Bitart (Lortab 5/325) 1 tab 1X ONCE PO Last administered on 11/30/18at 00:54; Start 11/30/18 at 00:45; Stop 11/30/18 at 00:46; Status DC Ondansetron HCl (Zofran) 4 mg PRN Q8HRS PRN IV NAUSEA/VOMITING; Start 11/30/18 at 01:30; Stop 12/01/18 at 01:29; Status DC Fentanyl Citrate (Fentanyl 2ml Vial) 50 mcg PRN Q1HR PRN IV PAIN; Start 11/30/18 at 01:30; Stop 12/01/18 at 01:29; Status DC Acetaminophen (Tylenol) 650 mg PRN Q4HRS PRN PO FEVER; Start 11/30/18 at 01:30; Stop 12/01/18 at 01:29; Status DC Acetaminophen/ Hydrocodone Bitart (Lortab 7.5/325) 1 tab PRN Q4HRS PRN PO PAIN Last administered on 12/01/18at 09:36; Start 11/30/18 at 13:15 Enoxaparin Sodium (Lovenox 40mg Syringe) 40 mg Q24H SQ Last administered on 11/30/18at 14:26; Start 11/30/18 at 14:00 Active Scripts Active Reported No Known Medications Prior To Admisstion (Info) Each 1 Each Vital Signs Vital Signs Date Time Temp Pulse Resp B/P (MAP) Pulse Ox O2 Delivery O2 Flow Rate FiO2 12/01/18 11:05 98.2 61 16 111/71 (84) 97 Room Air 98.2 12/01/18 08:00 2.0 Labs Laboratory Tests Test 11/30/18 01:38 12/01/18 09:58 White Blood Count 8.8 x10^3/uL (4.0-11.0) 8.6 x10^3/uL (4.0-11.0) Red Blood Count 4.19 x10^6/uL (4.30-5.70) 4.44 x10^6/uL (4.30-5.70) Hemoglobin 14.3 g/dL (13.0-17.5) 15.1 g/dL (13.0-17.5) Hematocrit 41.1 % (39.0-53.0) 43.6 % (39.0-53.0) Mean Corpuscular Volume 98 fL (79-100) 98 fL (79-100) Mean Corpuscular Hemoglobin 34 pg (25-35) 34 pg (25-35) Mean Corpuscular Hemoglobin Concent 35 g/dL (31-37) 35 g/dL (31-37) Red Cell Distribution Width 13.1 % (11.5-14.5) 13.4 % (11.5-14.5) Platelet Count 475 x10^3/uL (140-400) 493 x10^3/uL (140-400) Neutrophils (%) (Auto) 52 % (31-73) 68 % (31-73) Lymphocytes (%) (Auto) 33 % (24-48) 22 % (24-48) Monocytes (%) (Auto) 10 % (0-9) 6 % (0-9) Eosinophils (%) (Auto) 5 % (0-3) 4 % (0-3) Basophils (%) (Auto) 1 % (0-3) 1 % (0-3) Neutrophils # (Auto) 4.5 x10^3/uL (1.8-7.7) 5.8 x10^3/uL (1.8-7.7) Lymphocytes # (Auto) 2.9 x10^3/uL (1.0-4.8) 1.9 x10^3/uL (1.0-4.8) Monocytes # (Auto) 0.8 x10^3/uL (0.0-1.1) 0.5 x10^3/uL (0.0-1.1) Eosinophils # (Auto) 0.4 x10^3/uL (0.0-0.7) 0.3 x10^3/uL (0.0-0.7) Basophils # (Auto) 0.1 x10^3/uL (0.0-0.2) 0.1 x10^3/uL (0.0-0.2) Sodium Level 140 mmol/L (136-145) 138 mmol/L (136-145) Potassium Level 3.5 mmol/L (3.5-5.1) 4.1 mmol/L (3.5-5.1) Chloride Level 102 mmol/L (98-107) 102 mmol/L (98-107) Carbon Dioxide Level 26 mmol/L (21-32) 27 mmol/L (21-32) Anion Gap 12 (6-14) 9 (6-14) Blood Urea Nitrogen 16 mg/dL (8-26) 13 mg/dL (8-26) Creatinine 0.9 mg/dL (0.7-1.3) 0.9 mg/dL (0.7-1.3) Estimated GFR (Cockcroft-Gault) 96.0 96.0 BUN/Creatinine Ratio 18 (6-20) Glucose Level 114 mg/dL (70-99) 186 mg/dL (70-99) Calcium Level 9.0 mg/dL (8.5-10.1) 8.7 mg/dL (8.5-10.1) Total Bilirubin 0.3 mg/dL (0.2-1.0) Aspartate Amino Transf (AST/SGOT) 22 U/L (15-37) Alanine Aminotransferase (ALT/SGPT) 44 U/L (16-63) Alkaline Phosphatase 106 U/L (46-116) Creatine Kinase 121 U/L (39-308) Total Protein 8.0 g/dL (6.4-8.2) Albumin 3.8 g/dL (3.4-5.0) Albumin/Globulin Ratio 0.9 (1.0-1.7) Laboratory Tests Test 12/01/18 09:58 White Blood Count 8.6 x10^3/uL (4.0-11.0) Red Blood Count 4.44 x10^6/uL (4.30-5.70) Hemoglobin 15.1 g/dL (13.0-17.5) Hematocrit 43.6 % (39.0-53.0) Mean Corpuscular Volume 98 fL (79-100) Mean Corpuscular Hemoglobin 34 pg (25-35) Mean Corpuscular Hemoglobin Concent 35 g/dL (31-37) Red Cell Distribution Width 13.4 % (11.5-14.5) Platelet Count 493 x10^3/uL (140-400) Neutrophils (%) (Auto) 68 % (31-73) Lymphocytes (%) (Auto) 22 % (24-48) Monocytes (%) (Auto) 6 % (0-9) Eosinophils (%) (Auto) 4 % (0-3) Basophils (%) (Auto) 1 % (0-3) Neutrophils # (Auto) 5.8 x10^3/uL (1.8-7.7) Lymphocytes # (Auto) 1.9 x10^3/uL (1.0-4.8) Monocytes # (Auto) 0.5 x10^3/uL (0.0-1.1) Eosinophils # (Auto) 0.3 x10^3/uL (0.0-0.7) Basophils # (Auto) 0.1 x10^3/uL (0.0-0.2) Sodium Level 138 mmol/L (136-145) Potassium Level 4.1 mmol/L (3.5-5.1) Chloride Level 102 mmol/L (98-107) Carbon Dioxide Level 27 mmol/L (21-32) Anion Gap 9 (6-14) Blood Urea Nitrogen 13 mg/dL (8-26) Creatinine 0.9 mg/dL (0.7-1.3) Estimated GFR (Cockcroft-Gault) 96.0 Glucose Level 186 mg/dL (70-99) Calcium Level 8.7 mg/dL (8.5-10.1) Allergies Allergies Coded Allergies Type Severity Reaction Last Updated Verified No Known Drug Allergies 11/30/18 No Disposition/Orders: D/C to Home Patient Instructions D/C PLANNING 37 MIN FORREST ELKINS MD Dec 01, 2018 13:09
[2018-12-01] MEDS ORDERED: HYDR-2765 PO (13:10)
--- NOTE | 2018-12-01 13:11 | DISCH ---
DISCHARGE INSTRUCTIONS Condition on Discharge Condition on Discharge: Stable Activity After Discharge Activity Instructions for Disc: Activity as tolerated Lifting Instructions after Dis: No heavy lifting, No pulling or pushing Driving Instructions after Dis: Do not drive today Weight Bearing Status after Di: As tolerated Diet after Discharge Diet after Discharge: Regular Checks after Discharge Checks after discharge: Check blood press - daily Contacting the DR. after DC Call your doctor for: If your condition worsens FORREST ELKINS MD Dec 01, 2018 13:11
[2018-12-01] MEDS: ENOXAPARIN 40 MG/0.4 ML SYRINGE. SQ SCH (14:00)
--- NOTE | 2018-12-01 16:35 | NUR ---
Discharge Note: ALBERTO BRINK [address] [place] [address] Discharge instructions and discharge home medications reviewed with Patient and a copy given. All questions have been answered and understanding verbalized. The following instructions and handouts were given: Diet, activity, medication list and follow up instructions provided to patient. List of primary care physicians also provided to patient. Discontinued lines and drains: Peripheral IV discontinued and catheter intact. Patient discharged to Home or Self Care withFamily Membervia Ambulated
== END 2018-12-01 16:25 | disposition home or self-care (01) ==
LOC: ER 23:20 → ED HOLD 11-30 01:24 → 6 SOUTH 11-30 13:38
PROVIDERS: ADMIT Internal Medicine; ATTEND Internal Medicine
DX: S27.0XXA Traumatic pneumothorax, initial encounter (principal); Y93.89 Activity, other specified; Y92.89 Other specified places as the place of occurrence of the external cause; Y99.8 Other external cause status; W01.0XXA Fall on same level from slipping, tripping and stumbling without subsequent striking against object, initial encounter; Z82.49 Family history of ischemic heart disease and other diseases of the circulatory system; S22.49XA Multiple fractures of ribs, unspecified side, initial encounter for closed fracture; J96.90 Respiratory failure, unspecified, unspecified whether with hypoxia or hypercapnia; F17.200 Nicotine dependence, unspecified, uncomplicated; I10 Essential (primary) hypertension
CPT/HCPCS: 36415; 71045; 71101; 73000; 73010; 80048; 80053; 82550; 85025; 96372; 99284; G0378; J1650; G0379